=== PATIENT | female | born 1955 | race Caucasian/White ===

== ENCOUNTER 2017-02-08 08:36 | Emergency (ER) | payer BC ==
[2017-02-08 08:49] VITALS: BP 140/75
[2017-02-08] MEDS ORDERED: Acetaminophen/HYDROcodone 325-10 MG Tab PO ONE ×2 (09:17→09:53)
--- NOTE | 2017-02-08 09:50 | EDM.PDOC ---
Scribed by Cathi Cleveland 02/08/17 0949 for Rashard Hassan MD ED HPI GENERAL MEDICAL PROBLEM - General Chief Complaint: Back Pain or Injury Stated Complaint: HURT BACK IN BOAT Time Seen by Provider: 02/08/17 08:55 Source of Information: Reports: Patient, RN, RN Notes Reviewed History Limitations: Reports: No Limitations - History of Present Illness INITIAL COMMENTS - FREE TEXT/NARRATIVE: Complaining of left lower (posterior) rib pain sustained from a fall in a boat at 4 pm yesterday (02/07/17). Also has a bruise to left elbow. Denies any other injury. Slight relief with Motrin. 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 ED EXAM, GENERAL - Physical Exam Exam: See Below Exam Limited By: No Limitations General Appearance: Alert, WD/WN, No Apparent Distress Head: Atraumatic, Normocephalic Neck: Full Range of Motion Respiratory/Chest: Other (Acutely tender at left lower posterior-lateral chest wall. No visible deformity, crepitus, bruising or swelling. Skin intact. ) Cardiovascular: Normal Peripheral Pulses, Regular Rate, Rhythm, No Edema, No Gallop, No JVD, No Murmur, No Rub GI/Abdominal: Normal Bowel Sounds, Soft, Non-Tender, No Organomegaly, No Distention, No Abnormal Bruit, No Mass (Female) Exam: Deferred Rectal (Female) Exam: Deferred Back Exam: Normal Inspection, Full Range of Motion, NT Extremities: Other (mildly tender 4cm diameter bruise to left lateral elbow.) Neurological: Alert, Oriented, CN II-XII Intact, Normal Cognition Psychiatric: Normal Affect, Normal Mood Course - Vital Signs Last Recorded V/S: Last Vital Signs Temp 36.8 C 02/08/17 08:43 Pulse 59 L 02/08/17 08:43 Resp 20 02/08/17 08:43 BP 140/75 02/08/17 08:43 Pulse Ox 95 02/08/17 08:43 - Orders/Labs/Meds Orders: Active Orders 24 hr Category Date Time Status Ribs 2V wo Chest Lt [CR] Urgent Exams 02/08/17 08:50 Taken Labs: Laboratory Tests 02/08/17 Range/Units 08:56 Urine Color Yellow (YELLOW) Urine Appearance Clear (CLEAR) Urine pH 6.0 (5.0-9.0) Ur Specific [place] 1.020 (1.005-1.030) Urine Protein Negative (NEGATIVE) Urine Glucose (UA) Negative (NEGATIVE) Urine Ketones Negative (NEGATIVE) Urine Occult Blood Small H (NEGATIVE) Urine Nitrite Negative (NEGATIVE) Urine Bilirubin Negative (NEGATIVE) Urine Urobilinogen 0.2 (0.2-1.0) mg/dL Ur Leukocyte Esterase Negative (NEGATIVE) Urine RBC 5-10 H /HPF Urine WBC 0-5 (0-5/HPF) /HPF Ur Epithelial Cells Rare /HPF Urine Bacteria Few (0-FEW/HPF) /HPF Urine Mucus Few H /LPF Meds: Medications Discontinued Medications Generic Name Dose Route Start Last Admin Trade Name Freq PRN Reason Stop Dose Admin Hydrocodone Bitart/Acetaminophen 1 tab 02/08/17 09:17 02/08/17 09:20 [place] 325-10 Mg PO 02/08/17 09:18 1 tab ONETIME ONE Administration - Radiology Interpretation Free Text/Narrative:: X-ray ribs left: Subtle nondisplaced fracture at the left 10th rib. Departure - Departure Time of Disposition: 09:47 Disposition: Home, Self-Care 01 Condition: Good Clinical Impression: Fracture of rib of left side, Contusion, elbow - Discharge Information Instructions: Rib Fracture, [id number], Elbow Contusion, [id number] Referrals: PCP,Not In Area [Primary Care Provider] - Forms: ED Department Discharge Additional Instructions: RX: Hydrocodone APAP 5mg/325mg. *do not drive while under the influence of this medication. Follow up in clinic in 1 week with your doctor and ask your doctor to recheck your urine for blood. - My Orders Last 24 Hours: My Active Orders 02/08/17 08:50 Ribs 2V wo Chest Lt [CR] Urgent - Assessment/Plan Last 24 Hours: My Active Orders 02/08/17 08:50 Ribs 2V wo Chest Lt [CR] Urgent I have read and agree with the documentation that has been completed regarding this visit. By signing this record, I attest that the documentation was completed in my physical presence and is an accurate record of the encounter.
[2017-02-08] MEDS ORDERED: Acetaminophen/HYDROcodone 325-10 MG Tab ONE (09:53)
== END 2017-02-08 10:00 | disposition home or self-care (01) ==
LOC: DL.ED 08:36
DX: S22.32XA Fracture of one rib, left side, initial encounter for closed fracture (principal); S50.02XA Contusion of left elbow, initial encounter; Z88.2 Allergy status to sulfonamides; Z88.1 Allergy status to other antibiotic agents; Z87.891 Personal history of nicotine dependence; V92.09XA Drowning and submersion due to fall off unspecified watercraft, initial encounter
CPT/HCPCS: 71100; 81001; 99283; A9270